=== PATIENT | female | born 2000 | race Hispanic/Latino ===

== ENCOUNTER 2022-03-15 01:03 | Emergency (ER) | payer OTHER ==
[~2022-03-15] VITALS: Ht 157.5 cm; Wt 63.5 kg
[2022-03-15 01:10] VITALS: BP 149/82
[2022-03-15] MEDS ORDERED: SULF1TAB42 PO (01:40)
== END 2022-03-15 01:54 | disposition home or self-care (01) ==
LOC: EDH 01:03
DX: L03.115 Cellulitis of right lower limb (principal); M79.604 Pain in right leg